=== PATIENT | male | born 1975 | race Two or more races ===

== ENCOUNTER 2016-12-16 11:12 | Emergency (ER) | payer OTHER ==
[2016-12-16 11:18] VITALS: BP 126/75; PULSE 68; TEMP 97.8; BMI 25.1
--- NOTE | 2016-12-16 11:48 | PDOC ---
History of Present Illness - General Chief Complaint: Injury Stated Complaint: LT WRIST PAIN/ REASSESSMENT Time Seen by Provider: 12/16/16 11:21 History Source: Patient Exam Limitations: No Limitations - History of Present Illness Initial Comments: 12/16/16 11:42 CHIEF COMPLAINT: Colles fracture to the right wrist. Here for referral to ortho HISTORY OF PRESENT ILLNESS: Patient is a 41 y/o female, Was seen at urgent care yesterday. Diagnosed with colles fracture, to the right wrist. Patient was unsure where to follow-up. Denies any new pain, splints intact, good peripheral pulses with less than 2 second cap refill. 12/16/16 12:57 Occurred: reports: yesterday Severity: reports: moderate Upper Extremity Pain Location: right: wrist Past History - Past Medical History Allergies/Adverse Reactions: Allergies Allergy/AdvReac Type Severity Reaction Status Date / Time No Known Allergies Allergy Verified 12/16/16 11:18 Home Medications: Ambulatory Orders NK [No Known Home Medication] 12/16/16 Other medical history: NONE - Psycho/Social/Smoking Cessation Hx Anxiety: No Suicidal Ideation: No Smoking History: Never smoked Hx Alcohol Use: No Drug/Substance Use Hx: No Substance Use Type: None Review of Systems - Review of Systems Constitutional: No: Symptoms Reported Respiratory: No: Symptoms reported Musculoskeletal: Yes: Other (right colles fracture) Integumentary: No: Symptoms Reported All Other Systems: Reviewed and Negative *Physical Exam - Vital Signs Last Vital Signs Temp Pulse Resp BP Pulse Ox 97.8 F 68 20 126/75 98 12/16/16 11:12 12/16/16 11:12 12/16/16 11:12 12/16/16 11:12 12/16/16 11:12 - Physical Exam General Appearance: Yes: Appropriately Dressed. No: Apparent Distress Musculoskeletal: negative: Decreased Range of Motion (right arm splinted. ) Extremity: positive: Normal Capillary Refill. negative: Swelling, Erythema, Inflammation Integumentary: positive: Normal Color, Dry. negative: Erythema, Swelling, Ecchymosis, Bruising Neurologic: positive: Alert, Normal Mood/Affect Medical Decision Making - Medical Decision Making 12/16/16 12:59 A/P : With right arm Colles' fracture. Appointment made for follow-up today [address] Sauceda. Patient given instructions will follow-up. *DC/Admit/Observation/Transfer Diagnosis at time of Disposition: Wrist fracture Qualifiers: Encounter type: subsequent encounter Laterality: right - Discharge Dispostion Disposition: HOME Condition at time of disposition: Good Admit: No - Referrals Referrals: Nelson Sauceda MD [Staff Physician] - (1 pm today ) - Patient Instructions Additional Instructions: Please follow up with ortho today at [address] Sauceda
== END 2016-12-16 11:51 | disposition home or self-care (01) ==
LOC: JERFT 11:12
DX: S52.531D Colles' fracture of right radius, subsequent encounter for closed fracture with routine healing (principal); X58.XXXD Exposure to other specified factors, subsequent encounter
CPT/HCPCS: 99281-25